=== PATIENT | female | born 2000 | race Caucasian/White ===

== ENCOUNTER 2023-03-16 12:30 | Outpatient (CLI) | payer OTHER ==
[2023-03-17 01:08] LABS: HEPATITIS B SURFACE AB QUANT 15.8 mIU/mL (Immunity>9.9)
[2023-03-17 15:09] LABS: VARICELLA-ZOSTER AB IGG 610 index (Immune >165); VARICELLA-ZOSTER AB IGM <0.91 index (0.00-0.90)
== END 2023-03-16 12:45 | disposition home or self-care (01) ==
LOC: LAB.N 12:30
PROVIDERS: ATTEND Specialist
DX: Z02.0 Encounter for examination for admission to educational institution (principal)
CPT/HCPCS: 36415; 81599; 86317; 86480; 86787

== ENCOUNTER 2023-06-08 10:24 | Outpatient (CLI) | payer OTHER ==
[2023-06-08 10:52] LABS: BASOPHILS # (AUTO) 0.1 10^3/uL (0.0-0.1); BASOPHILS % (AUTO) 0.9 %; EOSINOPHILS # (AUTO) 0.1 10^3/uL (0.0-0.7); EOSINOPHILS % (AUTO) 1.5 %; HGB - HEMOGLOBIN 11.2 g/dL (12.0-16.0); LYMPHOCYTES # (AUTO) 2.2 10^3/uL (1.5-3.5); LYMPHOCYTES % (AUTO) 38.4 %; MEAN CORPUSCULAR HEMOGLOBIN 26.2 pg (27.0-31.0); MEAN PLATELET VOLUME 9.1 fL (7.9-10.8); MONOCYTES # (AUTO) 0.4 10^3/uL (0.0-1.0); MONOCYTES % (AUTO) 7.4 %; NEUTROPHILS % (AUTO) 51.6 %; PLT - PLATELET COUNT 301 10^3/uL (130-450); RED BLOOD COUNT 4.27 10^6/uL (4.20-5.40); RED CELL DISTRIBUTION WIDTH 14.6 % (12.0-15.0); WHITE BLOOD COUNT 5.8 x10^3/uL (4.8-10.8)
[2023-06-08 10:58] LABS: INR 1.1 (0.8-1.2); PT - PROTHROMBIN TIME 11.8 secs (9.9-12.6)
[2023-06-08 11:06] LABS: % IRON SATURATION 10 % (20-50); ALBUMIN/GLOBULIN RATIO 1.5 (1.0-2.2); ALKALINE PHOSPHATASE 52 IU/L (42-121); ALT ALANINE AMINOTRANSFERASE 8 IU/L (10-60); AST ASPARTATE AMINOTRANSFERASE 14 IU/L (10-42); BILIRUBIN,TOTAL 0.7 mg/dL (0.2-1.0); BUN - BLOOD UREA NITROGEN 6 mg/dL (6-20); CALCIUM 9.1 mg/dL (8.5-10.3); CARBON DIOXIDE - CO2 27 mmol/L (21-32); CHLORIDE 105 mmol/L (101-111); CHOL/HDL RATIO 2.7 (<4.4); CHOLESTEROL 154 mg/dL; CREATININE 0.6 mg/dL (0.6-1.3); CRP - C-REACTIVE PROTEIN < 0.5 mg/dL (<0.5); GFR - MDRD 127 (>89); GLUCOSE 95 mg/dL (74-104); HDL CHOLESTEROL 58 mg/dL; IRON 49 ug/dL (50-212); LDL CHOLESTEROL,CALCULATED 76 mg/dL; LDL/HDL RATIO 1.3 (<4.4); PARTIAL THROMBOPLASTIN TIME 30.9 secs (24.9-33.3); POTASSIUM 3.4 mmol/L (3.5-4.5); SODIUM 137 mmol/L (135-145); TOTAL IRON BINDING CAPACITY 501 ug/dL (250-450); TOTAL PROTEIN 6.7 g/dL (6.4-8.9); TRANSFERRIN 358 mg/dL (203-362); TRIGLYCERIDES 102 mg/dL (48-352); VLDL CHOLESTEROL 20 mg/dL
[2023-06-08 11:22] LABS: THYROID STIMULATING HORMONE 2.43 uIU/mL (0.34-5.60)
[2023-06-08 11:30] LABS: FERRITIN 3.5 ng/mL (11.0-306.8)
[2023-06-08 11:47] LABS: ESTIMATED AVERAGE GLUCOSE 105 mg/dL (70-100); HEMOGLOBIN A1c% 5.3 % (4.27-6.07)
[2023-06-09 05:12] LABS: VITAMIN D 25-HYDROXY 19.8 ng/mL (30.0-100.0)
== END 2023-06-08 10:25 | disposition home or self-care (01) ==
LOC: LAB 10:24
PROVIDERS: ATTEND Nurse Practitioner
DX: Z98.84 Bariatric surgery status (principal); R23.8 Other skin changes; R51.9 Headache, unspecified
CPT/HCPCS: 36415; 80053; 80061; 82306; 82607; 82728; 82746; 83036; 83540; 83721; 83970; 84425; 84443; 84466; 84590; 85025; 85610; 85651; 85730; 86140

== ENCOUNTER 2024-04-11 13:29 | Outpatient (CLI) | payer OTHER | END 2024-04-11 13:30 | disposition home or self-care (01) | LOC: LAB 13:29 | PROVIDERS: ATTEND Nurse Practitioner | DX: R76.11 Nonspecific reaction to tuberculin skin test without active tuberculosis (principal) | CPT/HCPCS: 81599 ==